=== PATIENT | female | born 1980 | race Caucasian/White ===

== ENCOUNTER 2016-12-10 10:39 | Emergency (ER) | payer SELFPAY ==
[~2016-12-10] VITALS: Ht 142.2 cm; Wt 47.7 kg
[~2016-12-10 10:39] MED LIST: POLY10O EACH EYE
[2016-12-10 10:41] VITALS: BP 122/74; PULSE 86; RESP 16; TEMP 98; O2SAT 99
--- NOTE | 2016-12-10 12:05 | PD ---
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 Denies abdominal or pelvic pain. Denies vaginal discharge, odor, itch, lesions. Denies dysuria, urgency, frequency. Denies fever, chills, nausea, vomiting. Denies risk of STD. Reports monogamous relationship with her boyfriend. Engages in unprotected sexual intercourse. Is on Depo-Provera for control. Has tried to stick something in it to open it up and pop it. Has not taken any medications or tried any other treatments to alleviate her symptoms. No known allergies. History of asthma. No other modifying factors or associated signs and symptoms. PFSH Past Medical History Asthma: Yes Respiratory: Yes (ASTHMA) ?: Not Social History Alcohol Use: No Tobacco Use: Yes (1 PPD) Allergies-Medications (Allergen,Severity, Reaction): Coded Allergies: No Known Allergies (Unverified , 12/10/16) Reported Meds & Prescriptions Reported Meds & Active Scripts Active Clindamycin (Clindamycin HCl) 150 Mg Cap 450 Mg PO Q6H 10 Days Ibuprofen 800 Mg Tab 800 Mg PO Q6HR PRN Polytrim 10 Ml Soln 1 Drop EACH EYE Q4 7 Days Review of Systems Except as stated in HPI: all other systems reviewed are Neg Physical Exam Narrative GENERAL: Well-nourished, well-developed female patient, in no acute distress; afebrile, nontoxic-appearing SKIN: Warm and dry. HEAD: Atraumatic. Normocephalic. EYES: Pupils equal and round. No scleral icterus. No injection or drainage. ENT: Mucous membranes pink and moist. NECK: Trachea midline. No lymphadenopathy. CARDIOVASCULAR: Regular rate. RESPIRATORY: No accessory muscle use. GASTROINTESTINAL: Abdomen soft, non-tender, nondistended. Bilateral pelvic region nontender to palpation. Hepatic and splenic margins not palpable. No guarding, rigidity, rebound tenderness. PELVIC: Speculum exam reveals edematous and erythematous cervix with white, mucopurulent, foul-smelling discharge. Bimanual exam reveals no palpable masses or adnexa tenderness, no uterine tenderness. Positive cervical motion tenderness. Right Bartholin gland with abscess that is fluctuant and tender on palpation; without pointing or drainage. No groin lymphadenopathy. MUSCULOSKELETAL: No obvious deformities. No clubbing. No cyanosis. No edema. NEUROLOGICAL: Awake and alert. No obvious cranial nerve deficits. Motor grossly within normal limits. Normal speech. PSYCHIATRIC: Appropriate mood and affect; insight and judgment normal. Data Data Last Documented VS Vital Signs Date Time Temp Pulse Resp B/P Pulse Ox O2 Delivery O2 Flow Rate FiO2 12/10/16 10:41 98.0 86 16 122/74 99 Room Air Orders Gc And Chlamydia Pcr (12/10/16 12:05) Wet Prep Profile (12/10/16 12:05) Lidocaine 1% Inj (50 Ml) (Xylocaine 1% I (12/10/16 12:15) Urinalysis - C+S If Indicated (12/10/16 12:11) Ed Urine Pregnancytest Poc (12/10/16 12:17) Azithromycin Powd Pack (Zithromax Powd P (12/10/16 13:45) Ceftriaxone Inj (Rocephin Inj) (12/10/16 13:45) Lidocaine 1% Inj (50 Ml) (Xylocaine 1% I (12/10/16 13:45) Labs Laboratory Tests Test 12/10/16 12/10/16 12:30 13:15 Urine Color LIGHT-YELLOW Urine Turbidity CLEAR Urine pH 8.0 Urine Specific [place] 1.006 Urine Protein NEG mg/dL Urine Glucose (UA) NEG mg/dL Urine Ketones NEG mg/dL Urine Occult Blood NEG Urine Nitrite NEG Urine Bilirubin NEG Urine Urobilinogen LESS THAN 2.0 MG/DL Urine Leukocyte Esterase TRACE Urine RBC 1 /hpf Urine WBC LESS THAN 1 /hpf Urine Squamous Epithelial 4 /hpf Cells Urine Bacteria RARE /hpf Microscopic Urinalysis Comment CULT NOT INDICATED Clue Cells (Wet Prep) PRESENT Vaginal Trichomonas (Wet Prep) NONE SEEN Vaginal Yeast (Wet Prep) NONE SEEN MDM Medical Decision Making Medical Screen Exam Complete: Yes Emergency Medical Condition: Yes Medical Record Reviewed: Yes Differential Diagnosis Bartholin abscess, Bartholin cyst, gonorrhea, chlamydia Narrative Course 36-year-old female physical exam consistent with a right Bartholin abscess. Urine negative. Urinalysis negative for infection. Rocephin and azithromycin administered in the ER for possible chlamydia and/or gonorrhea. See my procedure note for incision and drainage. Patient positive for bacterial vaginosis. Clindamycin and ibuprofen prescribed for home. Instructed patient to follow up with gynecology and she verbalized understanding and agreement. Chlamydia and gonorrhea pending. Patient is medically cleared and stable for discharge. Discussed reasons to return to the emergency department. Instructed patient to follow up with primary care provider. Patient agrees with treatment plan. The patients vital signs are stable and the patient is stable for outpatient follow-up and treatment. Patient discharged home, stable and in no acute distress. Procedures Procedure Narrative INCISION AND DRAINAGE OF ABSCESS: The area was prepped and was sterilely draped. 1% lidocaine was used to anesthetize the area. The area was properly anesthetized. A number 11 scalpel was used to make a 0.5-cm incision across the area of the abscess. Cultures were obtained. The abscess was drained an irrigated with normal saline. Word catheter placed. Sterile dressing applied. Diagnosis Primary Impression: Abscess of Bartholin's gland Additional Impression: BV (bacterial vaginosis) Referrals: [facility] [employer] Primary Care Physician Patient Instructions: Bartholin Cyst (ED), Excision of a Bartholin's Cyst (DC) , General Instructions Departure Forms: Tests/Procedures, Work Release Enter return to work date: Dec 12, 2016 Additional Instructions: Antibiotics as prescribed and completed a full course; clindamycin is on the $4 list at [facility] Ibuprofen or Tylenol as directed and as needed for pain/inflammation Follow-up with roguer within 1-2 days Follow-up with primary care provider Return to the emergency department immediately with worsening of symptoms Med/Other Pt SpecificInfo: Prescription(s) given Scripts Clindamycin 150 Mg Idp487 Mg PO Q6H 10 Days Ref 0 Prov:Siri Gillette 12/10/16 Ibuprofen 800 Mg Ppt441 Mg PO Q6HR PRN (PAIN) #30 TAB Ref 0 Prov:Siri Gillette 12/10/16 Disposition: 01 DISCHARGE HOME Condition: Stable Siri Gillette Dec 10, 2016 12:04
[2016-12-10] MEDS ORDERED: LIDOCAINE HCL 1% 50 ML VIAL INFIL ONE (12:15)
[2016-12-10] MEDS ORDERED: IBUP800T23 PO (12:28)
[2016-12-10] MEDS ORDERED: BACT800T5 PO (12:28)
[2016-12-10] MEDS ORDERED: CEPH-460 PO (12:28)
[2016-12-10 13:27] LABS: BACTERIA, URINE RARE /hpf; BLOOD, URINE NEG (NEG); GLUCOSE,URINE NEG (NEG); KETONE, URINE NEG (NEG); NITRITE,URINE NEG (NEG); SQUAMOUS EPITHELIAL CELL URINE 4 /hpf (0-5); URINE COLOR LIGHT-YELLOW (YELLW/STRAW)
[2016-12-10 13:28] LABS: COMMENT (UR) CULT NOT INDICATED; CULTURE IF INDICATED CULT NOT INDICATED
[2016-12-10] MEDS ORDERED: CLIN1CAP5 PO (13:34)
[2016-12-10] MEDS ORDERED: cefTRIAXone 250 MG VIAL IM ONE (13:45)
[2016-12-10] MEDS ORDERED: LIDOCAINE HCL 1% 50 ML VIAL IM ONE (13:45)
[2016-12-10] MEDS ORDERED: AZITHROMYCIN PWD FOR SUSP 1 GM PACKET PO ONE (13:45)
[2016-12-10 16:15] LABS: CHLAMYDIA PCR NOT DETECTED (NOT DETECT); NEISSERIA PCR NOT DETECTED (NOT DETECT)
== END 2016-12-10 14:31 | disposition home or self-care (01) ==
LOC: NEPB 10:39
DX: N75.1 Abscess of Bartholin's gland (principal); J45.909 Unspecified asthma, uncomplicated; F17.210 Nicotine dependence, cigarettes, uncomplicated; N76.0 Acute vaginitis; B96.1 Klebsiella pneumoniae [K. pneumoniae] as the cause of diseases classified elsewhere
CPT/HCPCS: 56420; 81001; 84703; 86403; 87070; 87077; 87186; 87210; 87491; 87591; 96372; 99283; J0696

== ENCOUNTER 2016-12-11 09:48 | Emergency (ER) | payer SELFPAY ==
[~2016-12-11 09:48] MED LIST changes: +CLIN1CAP5 PO; +IBUP800T23 PO
[2016-12-11 09:50] VITALS: BP 110/78; PULSE 88; RESP 12; TEMP 98; O2SAT 99
--- NOTE | 2016-12-11 10:23 | PD ---
HPI Chief Complaint: Wound/Suture/Staple Re-Check Time Seen by Provider: 10:18 Travel History International Travel<30 days: No Contact w/Intl Traveler<30days: No Traveled to known affect area: No History of Present Illness HPI 36-year-old female presents to the emergency department with complaint of her [place] catheter coming out this morning of her Bartholin abscess that I incised and drained yesterday. She states that she was taking the catheter to her leg and it came out. She called the ER and was told to come back and have the catheter replaced. Reports symptoms are better without the catheter in and it is less painful. Says she really doesn't want a catheter put back in. She has been taking the antibiotics as prescribed. She denies onset of fever, chills, nausea or vomiting. No other modifying factors or associated signs and symptoms. PFSH Past Medical History Asthma: Yes Respiratory: Yes (ASTHMA) Social History Alcohol Use: No Tobacco Use: Yes (1 PPD) Allergies-Medications (Allergen,Severity, Reaction): Coded Allergies: No Known Allergies (Unverified , 12/11/16) Reported Meds & Prescriptions Reported Meds & Active Scripts Active Clindamycin (Clindamycin HCl) 150 Mg Cap 450 Mg PO Q6H 10 Days Ibuprofen 800 Mg Tab 800 Mg PO Q6HR PRN Polytrim 10 Ml Soln 1 Drop EACH EYE Q4 7 Days Review of Systems Except as stated in HPI: all other systems reviewed are Neg Physical Exam Narrative GENERAL: Well-nourished, well-developed female patient, in no acute distress SKIN: Warm and dry. HEAD: Atraumatic. Normocephalic. EYES: Pupils equal and round. No scleral icterus. No injection or drainage. ENT: Mucosa pink and moist. Airway patent. NECK: Trachea midline. CARDIOVASCULAR: Regular rate. RESPIRATORY: No accessory muscle use. GASTROINTESTINAL: Flat. MUSCULOSKELETAL: No obvious deformities. No clubbing. No cyanosis. No edema. NEUROLOGICAL: Awake and alert. Oriented 3. No obvious cranial nerve deficits. Motor grossly within normal limits. Normal speech. PSYCHIATRIC: Appropriate mood and affect; insight and judgment normal. Data Data Last Documented VS Vital Signs Date Time Temp Pulse Resp B/P Pulse Ox O2 Delivery O2 Flow Rate FiO2 12/11/16 09:50 98.0 88 12 110/78 99 Room Air MDM Medical Decision Making Medical Screen Exam Complete: Yes Emergency Medical Condition: No Medical Record Reviewed: Yes Differential Diagnosis Abscess recheck, medical secretary receptionist replacement, medical clearance Narrative Course 36-year-old female that I placed a Word catheter in her right Bartholin abscess yesterday that came out this morning. She called and was told to come have it replaced, although she doesn't want it replaced. I offered to replace the Word catheter and the patient declined. Risks, signs and symptoms were discussed and patient verbalized understanding and agreement. 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 Vital signs are stable and the patient is stable for outpatient follow-up and treatment. The patient has no urgent or emergent medical complaints. There is no emergent or urgent medical need at this time. I instructed the patient to follow up with their primary care provider. A medical screening exam was performed: At the time of evaluation the presenting medical condition was determined not to be of an emergent nature. The patient was given the option of receiving additional care, but declined. Patient was given options for additional community resources from which to obtain care. The Patient Has Been advised to seek medical attention for their presenting complaint. The patient has been advised to return to the ER at any time if an emergent condition develops. Diagnosis Primary Impression: Encounter for medical screening examination Condition: Stable Siri Gillette Dec 11, 2016 10:23
== END 2016-12-11 10:25 | disposition left against medical advice (07) ==
LOC: NEPB 09:48
DX: T85.628A Displacement of other specified internal prosthetic devices, implants and grafts, initial encounter (principal); Y82.8 Other medical devices associated with adverse incidents
CPT/HCPCS: 99281